=== PATIENT | female | born 1980 | race Caucasian/White ===

== ENCOUNTER 2017-07-04 00:46 | Emergency (ER) | payer BC ==
[2017-07-04 06:44] LABS: ADD MAN DIFF? NO
[2017-07-04 06:47] LABS: WHITE BLOOD COUNT 3.3 10^3/ul (4.8-10.8)
[2017-07-04 06:47] LABS: ABNORMAL IP MESSAGE 1; BASOPHILS % 0.6 % (0.0-2.0); EOSINOPHILS % 0.9 % (0.0-7.0); HEMATOCRIT 31.6 % (37.0-47.0); HEMOGLOBIN 9.1 g/dl (12.0-16.0); LYMPHOCYTES # 0.9 10^3/ul (0.8-2.9); LYMPHOCYTES % 26.1 % (15.0-51.0); MEAN CORPUSCULAR HEMOGLOBIN 20.3 pg (29.0-33.0); MEAN CORPUSCULAR HGB CONC 28.8 g/dl (32.0-37.0); MEAN CORPUSCULAR VOLUME 70.5 fl (82.0-101.0); MONOCYTE # 0.5 10^3/ul (0.3-0.9); MONOCYTES % 15.8 % (0.0-11.0); NEUTROPHIL # 1.9 10^3/ul (1.6-7.5); NEUTROPHILS % 56.3 % (39.0-77.0); PLATELET COUNT 179 10^3/UL (140-415); RED BLOOD COUNT 4.48 10^6/ul (4.20-5.40); RED CELL DISTRIBUTION WIDTH 21.3 % (11.5-14.5)
[2017-07-04 06:49] LABS: POSITIVE DIFF @See below
[2017-07-04] MEDS: ONDANSETRON 4 MG INJ IV (07:05)
[2017-07-04] MEDS: SOD CHLORIDE 0.9% 1,000 ML IV (07:05)
[2017-07-04] MEDS: LORAZEPAM 2 MG INJ IV (07:05)
[2017-07-04 07:17] LABS: ALANINE AMINOTRANSFERASE 53 IU/L (13-69); ALBUMIN 4.8 g/dl (3.3-4.9); ALBUMIN/GLOBULIN RATIO 1.26; ALKALINE PHOSPHATASE 91 IU/L (42-121); ANION GAP 16 (8-16); ASPARTATE AMINO TRANSFERASE 35 IU/L (15-46); BLOOD UREA NITROGEN 10 mg/dl (7-20); CALCIUM 9.7 mg/dl (8.4-10.2); CARBON DIOXIDE 27 mmol/L (21-31); CHLORIDE 102 mmol/L (97-110); CREATINE KINASE 44 IU/L (23-200); CREATININE 0.69 mg/dl (0.44-1.00); GLUCOSE 105 mg/dl (70-220); POTASSIUM 3.7 mmol/L (3.5-5.1); SODIUM 141 mmol/L (135-144); TOTAL PROTEIN 8.6 g/dl (6.1-8.1)
[2017-07-04 07:24] LABS: INR 0.95; PROTIME 12.8 Sec (11.9-14.9)
[2017-07-04 07:25] LABS: PARTIAL THROMBOPLASTIN TIME 26.5 Sec (25.0-35.0)
[2017-07-04 07:29] LABS: CK INDEX 1.1; CK-MB 0.49 ng/ml (0.0-2.4)
[2017-07-04 07:30] LABS: LACTIC ACID 0.9 mmol/L (0.5-2.0)
[2017-07-04 07:34] LABS: FREE THYROXINE INDEX (Calc) 3.26 ug/ml (0.65-3.89); T3 UPTAKE 32.3 % (23.5-40.5); T4 (THYROXINE) 10.1 ug/dl (5.5-11.0)
[2017-07-04 07:36] LABS: TROPONIN-I < 0.012 ng/ml (0.00-0.12)
[2017-07-04] MEDS: SOD CHLORIDE 0.9% 100 ML (08:27)
[2017-07-04] MEDS: IOHEXOL 100 ML (08:27)
[2017-07-05] MEDS ORDERED: ACETAMINOPHEN 325 MG SUPP PR (15:31)
== END 2017-07-04 09:26 | disposition home or self-care (01) ==
LOC: E/R 00:46
DX: R55 Syncope and collapse (principal); D50.9 Iron deficiency anemia, unspecified; F17.210 Nicotine dependence, cigarettes, uncomplicated
CPT/HCPCS: 36415; 70450; 70496; 71045; 80053; 82550; 82553; 83605; 84436; 84479; 84484; 84703; 85025; 85610; 85730; 87400; 93005; 96374; 96375; 99285-25

== ENCOUNTER 2018-09-16 03:41 | Emergency (ER) | payer BC ==
[2018-09-16] MEDS: LIDOCAINE/MYLANTA 40 ML BTL PO (05:25)
== END 2018-09-16 06:00 | disposition home or self-care (01) ==
LOC: FTE 03:41 → E/R 06:00
DX: J02.9 Acute pharyngitis, unspecified (principal); F41.9 Anxiety disorder, unspecified; K21.9 Gastro-esophageal reflux disease without esophagitis
CPT/HCPCS: 99283